=== PATIENT | male | born 1950 | race Caucasian/White ===

== ENCOUNTER → 2018-04-09 | Outpatient (CLI) | payer MEDICARE, BC ==
[2018-04-09 12:16] LABS: BASOPHILS ABSOLUTE AUTO 0.05 K/mm3 (0.00-0.23); BASOPHILS PERCENT AUTO 1 % (0-2); EOSINOPHILS ABSOLUTE AUTO 0.12 K/mm3 (0.00-0.68); EOSINOPHILS PERCENT AUTO 2 % (0-6); Hematocrit 44.3 % (37.0-53.0); Hemoglobin 15.4 g/dL (13.5-17.5); IMMATURE GRAN ABSOLUTE AUTO 0.02 K/mm3 (0.00-0.10); IMMATURE GRAN PERCENT AUTO 0 % (0-1); LYMPHOCYTES ABSOLUTE AUTO 1.91 K/mm3 (0.84-5.20); LYMPHOCYTES PERCENT AUTO 27 % (21-46); MONOCYTES PERCENT AUTO 8 % (4-13); Mean Corpuscular HGB 31.8 pg (26.0-34.0); Mean Corpuscular HGB Conc 34.8 g/dL (31.5-36.5); Mean Corpuscular Volume 91 fL (80-100); Mean Platelet Volume 9.9 fL (9.1-12.4); NEUTROPHILS ABSOLUTE AUTO 4.49 K/mm3 (1.96-9.15); NEUTROPHILS PERCENT AUTO 62 % (41-73); Platelet Count 218 K/mm3 (150-400); RDW Coefficient Variation 12.8 % (11.7-14.2); RDW Standard Deviation 42.2 fL (35.1-46.3); Red Blood Cell Count 4.85 M/mm3 (4.30-5.90); White Blood Cell Count 7.19 K/mm3 (4.00-11.30)
[2018-04-09 12:46] LABS: Anion Gap 8 mmol/L (6-16); Blood Urea Nitrogen 14 mg/dL (8-24); Bun/Creatinine Ratio 15.1 (12.0-20.0); CO2, Blood 28 mmol/L (21-32); Calcium, Blood 9.5 mg/dL (8.5-10.1); Chloride, Blood 103 mmol/L (98-108); Creatinine, Blood 0.93 mg/dL (0.60-1.20); Free Thyroxine 0.82 ng/dL (0.70-1.60); Glomerular Filtration Rate >60 (60-); Glucose, Blood 110 mg/dL (70-99); Potassium, Blood 4.5 mmol/L (3.5-5.5); Sodium, Blood 139 mmol/L (136-145); Thyroid Stimulating Hormone 1.698 uIU/mL (0.360-4.800)
== END ==
LOC: LAB SHORT 12:09 → LAB EV 12:09
PROVIDERS: General Practice
DX: R20.2 Paresthesia of skin (principal); R53.81 Other malaise; R53.83 Other fatigue
CPT/HCPCS: 80048; 82607; 82746; 84439; 84443; 85025

== ENCOUNTER → 2018-09-17 | Outpatient (CLI) | payer MEDICARE, BC | LOC: LAB SHORT 11:32 → LAB 11:32 | DX: R53.83 Other fatigue (principal) | CPT/HCPCS: 84403 ==

== ENCOUNTER → 2020-02-29 | Outpatient (CLI) | payer MEDICARE, BC | END | disposition home or self-care (01) | LOC: LAB SHORT 08:16 → PLD 08:16 | DX: L72.9 Follicular cyst of the skin and subcutaneous tissue, unspecified (principal) | CPT/HCPCS: 88304 ==

== ENCOUNTER → 2021-02-19 | Outpatient (CLI) | payer MEDICARE, BC | LOC: LAB SHORT 11:15 → LAB 11:15 | DX: D48.5 Neoplasm of uncertain behavior of skin (principal) | CPT/HCPCS: 88305 ==

== ENCOUNTER → 2021-03-07 | Outpatient (CLI) | payer MEDICARE, BC | END | disposition home or self-care (01) | LOC: LAB SHORT 12:48 → LAB 12:48 | DX: C44.612 Basal cell carcinoma of skin of right upper limb, including shoulder (principal) | CPT/HCPCS: 88305 ==

== ENCOUNTER → 2021-07-18 | Outpatient (CLI) | payer MEDICARE, BC | END | disposition home or self-care (01) | LOC: LAB SHORT 07:54 → PLD 07:54 → LAB 07:54 | DX: L60.2 Onychogryphosis (principal); B35.1 Tinea unguium | CPT/HCPCS: 88305; 88312 ==

== ENCOUNTER 2023-04-01 07:27 | Day surgery (SDC) | payer MEDICARE, BC ==
[~2023-04-01] VITALS: Ht 188 cm; Wt 115.0 kg
[2023-04-01] VITALS (11 sets, daily range): BP systolic 128–153; BP diastolic 67–119
[~2023-04-01 07:27] MED LIST: ASPIR 8181 M1 PO; ATOR40TA PO; BENAZEPRIL HCL40 M1 PO; CYMBALTA60 M2 PO; Cialis5 MG PO; FURO20 PO; Flomax0.4 MG PO; IBUP800 PO; LOSA50 PO; POTA10T PO
--- NOTE | 2023-04-01 08:53 | NUR ---
PT RETURNS TO RECOVER ROOM FROM LAB. ALERT AND ORINETED, SITTING UP IN RECLINER. COFFEE PROVIDED. VSS. TR BAND IN PLACE TO RIGHT RADIAL WITH 12CC OF AIR IN PLACE. NO BLEEDING NO HEMATOMA. DR. RUTHERFORD IN TO SEE PT POST PROCEDURE.
--- NOTE | 2023-04-01 10:39 | NUR ---
PT TR BAND REMAINS UNCHANGED DURING FREQUENT ASSESSMENT. 3CC OF AIR REMOVED FROM BAND AT THIS TIME. WILL CONTINUE TO DEFLATE PER PROTOCOL.
--- NOTE | 2023-04-01 10:42 | NUR ---
ADDITIONAL 2CC OF AIR REMOVED FROM BAND, SMALL AMOUNT OF OOZING NOTED, AIR REINSTILLED UNTIL BLEEDING STOPPED.
--- NOTE | 2023-04-01 11:22 | NUR ---
TR DEFLATION RESUMED. ALL AIR REMOVED FROM BAND AT THIS TIME. PT. VSS REMAIN STABLE.
--- NOTE | 2023-04-01 12:04 | NUR ---
PT ABLE TO GET SELF DRESSED. TR BAND REMOVED. IV REMOVED, CATHETER INTACT. PT. HAS BANDAGE IN PLACE. SITE WNL. PT VSS. PT FRIEND TO PICK PT UP, TO BE TAKEN VIA WHEELCHAIR TO EXIT. NO FURTHER QUESTIONS REGARDING DISCHARGE INSTRUCTIONS AT THIS TIME.
== END 2023-04-01 12:30 | disposition home or self-care (01) ==
LOC: MHTC 07:27
DX: R93.1 Abnormal findings on diagnostic imaging of heart and coronary circulation (principal); R94.39 Abnormal result of other cardiovascular function study; R06.09 Other forms of dyspnea; E78.5 Hyperlipidemia, unspecified; I10 Essential (primary) hypertension; G47.33 Obstructive sleep apnea (adult) (pediatric); Z99.89 Dependence on other enabling machines and devices; Z82.49 Family history of ischemic heart disease and other diseases of the circulatory system; Z87.891 Personal history of nicotine dependence; Z79.899 Other long term (current) drug therapy
CPT/HCPCS: 76937; 93458; 99152; C1769; C1887; C1894; J1644; J2250; J3010; J7030; J7050; Q9967

== ENCOUNTER → 2024-06-02 | Outpatient (CLI) | payer MEDICARE, BC ==
[2024-06-02 12:58] LABS: BASOPHILS ABSOLUTE AUTO 0.06 K/mm3 (0.00-0.23); BASOPHILS PERCENT AUTO 1 % (0-2); EOSINOPHILS ABSOLUTE AUTO 0.11 K/mm3 (0.00-0.68); EOSINOPHILS PERCENT AUTO 2 % (0-6); Hematocrit 43.7 % (37.0-53.0); Hemoglobin 14.7 g/dL (13.5-17.5); IMMATURE GRAN ABSOLUTE AUTO 0.01 K/mm3 (0.00-0.10); IMMATURE GRAN PERCENT AUTO 0 % (0-1); LYMPHOCYTES ABSOLUTE AUTO 1.22 K/mm3 (0.84-5.20); LYMPHOCYTES PERCENT AUTO 19 % (21-46); MONOCYTES ABSOLUTE AUTO 0.52 K/mm3 (0.16-1.47); MONOCYTES PERCENT AUTO 8 % (4-13); Mean Corpuscular HGB 30.6 pg (26.0-34.0); Mean Corpuscular HGB Conc 33.6 g/dL (31.5-36.5); Mean Corpuscular Volume 91 fL (80-100); Mean Platelet Volume 10.6 fL (9.1-12.4); NEUTROPHILS ABSOLUTE AUTO 4.68 K/mm3 (1.96-9.15); NEUTROPHILS PERCENT AUTO 71 % (41-73); Platelet Count 186 K/mm3 (150-400); RDW Coefficient Variation 13.7 % (11.7-14.2); Red Blood Cell Count 4.81 M/mm3 (4.30-5.90)
[2024-06-02 13:18] LABS: Alanine Aminotransfer (ALT/SGP 41 U/L (12-78); Albumin/Globulin Ratio 1.2 (0.8-1.8); Alk Phos 110 U/L (50-136); Anion Gap 9 mmol/L (3-11); Aspartate Aminotrans (AST/SGOT 20 U/L (12-37); Bilirubin, Total 0.7 mg/dL (0.1-1.0); Blood Urea Nitrogen 17 mg/dL (8-24); Bun/Creatinine Ratio 17.7 (12.0-20.0); CHOL/HDL RATIO 2.6; CO2, Blood 26 mmol/L (21-32); Chloride, Blood 106 mmol/L (98-108); Cholesterol 145 mg/dL (50-200); Creatinine, Blood 0.96 mg/dL (0.60-1.20); Globulin, Blood 3.4 g/dL (2.2-4.0); Glomerular Filtration Rate 83 (60-); Glucose, Blood 103 mg/dL (70-99); HDL Cholesterol 56 mg/dL (>39); LDL/HDL RATIO 1.3; Low Density Lipoprotein Chol 72 mg/dL (0-110); Potassium, Blood 4.3 mmol/L (3.5-5.5); Prostate Specific Antigen 0.702 ng/mL (0.000-4.000); Sodium, Blood 137 mmol/L (136-145); Total Protein, Blood 7.4 g/dL (6.4-8.2); Triglycerides 85 mg/dL (30-160); Very Low Density Lipoprot Chol 17 mg/dL (6-32)
== END ==
LOC: LAB 11:50 → LAB SHORT 11:50
PROVIDERS: Family Medicine
DX: Z12.5 Encounter for screening for malignant neoplasm of prostate (principal); I12.9 Hypertensive chronic kidney disease with stage 1 through stage 4 chronic kidney disease, or unspecified chronic kidney disease; E78.2 Mixed hyperlipidemia; N18.9 Chronic kidney disease, unspecified
CPT/HCPCS: 80053; 80061; 85025; G0103

== ENCOUNTER → 2025-01-10 | Outpatient (CLI) | payer MEDICARE, BC ==
[2025-01-10 13:48] LABS: Hematocrit 42.1 % (37.0-53.0); Hemoglobin 14.1 g/dL (13.5-17.5); Mean Corpuscular HGB Conc 33.5 g/dL (31.5-36.5); Mean Corpuscular Volume 92 fL (80-100); NRBC ABSOLUTE 0.00 K/mm3 (0.00-0.02); NRBC Auto 0.0 /100 WBC (0.0-0.2); Platelet Count 179 K/mm3 (150-400); RDW Coefficient Variation 13.4 % (11.7-14.2); RDW Standard Deviation 45.4 fL (35.1-46.3)
[2025-01-10 14:33] LABS: Alanine Aminotransfer (ALT/SGP 40 U/L (12-78); Albumin, Blood 3.8 g/dL (3.4-5.0); Albumin/Globulin Ratio 1.2 (0.8-1.8); Anion Gap 8 mmol/L (3-11); Aspartate Aminotrans (AST/SGOT 14 U/L (12-37); Bilirubin, Total 0.4 mg/dL (0.1-1.0); Blood Urea Nitrogen 21 mg/dL (8-24); CHOL/HDL RATIO 2.8; CO2, Blood 25 mmol/L (21-32); Calcium, Blood 9.1 mg/dL (8.5-10.1); Chloride, Blood 108 mmol/L (98-108); Cholesterol 136 mg/dL (50-200); Creatinine, Blood 1.00 mg/dL (0.60-1.20); Globulin, Blood 3.2 g/dL (2.2-4.0); Glucose, Blood 96 mg/dL (70-99); HDL Cholesterol 48 mg/dL (>39); LDL/HDL RATIO 1.4; Low Density Lipoprotein Chol 67 mg/dL (0-110); Potassium, Blood 4.2 mmol/L (3.5-5.5); Sodium, Blood 137 mmol/L (136-145); Total Protein, Blood 7.0 g/dL (6.4-8.2); Triglycerides 104 mg/dL (30-160); Very Low Density Lipoprot Chol 20 mg/dL (6-32)
== END ==
LOC: LAB 08:50 → LAB SHORT 08:50
PROVIDERS: Family Medicine
DX: I25.10 Atherosclerotic heart disease of native coronary artery without angina pectoris (principal); E78.2 Mixed hyperlipidemia; I12.9 Hypertensive chronic kidney disease with stage 1 through stage 4 chronic kidney disease, or unspecified chronic kidney disease; N18.2 Chronic kidney disease, stage 2 (mild); Z79.02 Long term (current) use of antithrombotics/antiplatelets; Z79.899 Other long term (current) drug therapy
CPT/HCPCS: 80053; 80061; 85027